=== PATIENT | male | born 1955 | race Caucasian/White ===

== ENCOUNTER → 2017-05-18 | Outpatient (CLI) | payer BC ==
[2017-05-18 09:40] LABS: BASO % 0.3 %; BASO ABS # 0.02 K/uL (0-0.2); EOS % 3.2 %; EOS ABS # 0.22 K/uL (0-0.5); HEMATOCRIT 48.7 % (42-52); IG# 0.01 K/uL (0.00-0.02); LYMPH % 28.6 %; LYMPH ABS # 1.98 K/uL (1.2-3.4); MEAN CELL VOLUME 90.4 fL (80-100); MEAN CORPUSCULAR HEMOGLOBIN 31.5 pg (25-34); MEAN CORPUSCULAR HGB CONC 34.9 g/dl (32-36); MONO % 10.4 %; MONO ABS # 0.72 K/uL (0.11-0.59); NEUT % 57.4 %; NEUT ABS # 3.97 K/uL (1.4-6.5); PLATELET COUNT 160 K/uL (130-400); RED CELL DISTRIBUTION WIDTH CV 13.2 % (11.5-14.5); WHITE BLOOD COUNT 6.92 K/uL (4.8-10.8)
[2017-05-18 09:59] LABS: ALBUMIN 3.5 gm/dl (3.4-5.0); ALT/SGPT 31 U/L (12-78); AST/SGOT 30 U/L (15-37); BLOOD UREA NITROGEN 18 mg/dl (7-18); CALCIUM 8.6 mg/dl (8.5-10.1); CARBON DIOXIDE 27 mmol/L (21-32); CREATININE 0.94 mg/dl (0.60-1.40); GLUCOSE 86 mg/dl (70-99); POTASSIUM 3.9 mmol/L (3.5-5.1); SODIUM 141 mmol/L (136-145); TOTAL PROTEIN 6.8 gm/dl (6.4-8.2)
[2017-05-18 10:10] LABS: ALKALINE PHOSPHATASE 62 U/L (45-117); CHOLESTEROL 222 mg/dl (0-200); LDL CHOLESTEROL CALCULATED 153 mg/dl
== END | disposition home or self-care (01) ==
LOC: C.LAB1850 07:52
PROVIDERS: ATTEND Internal Medicine
DX: E78.5 Hyperlipidemia, unspecified (principal); K62.5 Hemorrhage of anus and rectum; Z12.5 Encounter for screening for malignant neoplasm of prostate

== ENCOUNTER 2020-09-08 08:15 | Inpatient (IN) ==
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
[~2020-09-08 08:15] MED LIST: HEPARIN (PORCINE) 1000 UNIT/ML 10 ML (CATH LAB USE ONLY) ONE; MIDAZOLAM HCL 1 MG/ML 2ML VIAL ONE; NITROGLYCERIN/D5W 100MCG/ML 20ML SYR ONE; fentaNYL citrate 100 MCG/2 ML VIAL ONE; niCARdipine HCL INJ 2.5 MG/ML 10 ML AMP ONE
[2020-09-08] MEDS ORDERED: fentaNYL citrate 100 MCG/2 ML VIAL ONE (08:25)
[2020-09-08] MEDS ORDERED: STAT IV Infusion **Titration per Protocol STA ×2 (08:26→10:02)
[2020-09-08] MEDS ORDERED: MIDAZOLAM BOLUS FROM BAG IV PRN (08:26)
[2020-09-08] MEDS ORDERED: BIVALIRUDIN 250 MG VIAL (CATH LAB ONLY) ONE ×2 (08:29→08:54)
[2020-09-08] MEDS ORDERED: MIDAZOLAM HCL 125 MG/250 ML BAG IV SCH (08:30)
[2020-09-08 08:34] LABS: Basophils # (auto) 0.01 K/uL (0-0.2); Basophils % (auto) 0.2 %; Eosinophils # (auto) 0.21 K/uL (0-0.5); Eosinophils % (auto) 3.2 %; Hematocrit (blood only) 45.6 % (42-52); Hemoglobin 16.1 g/dL (14.0-18.0); Immature Granulocytes # (auto) 0.05 K/uL (0.00-0.02); Immature Granulocytes % (auto) 0.8 %; Lymphocytes # (auto) 2.04 K/uL (1.2-3.4); Lymphocytes % (auto) 31.4 %; Mean Corpuscular Hemoglobin 32.1 pg (25-34); Mean Corpuscular Hgb Conc 35.3 g/dL (32-36); Mean Corpuscular Volume 90.8 fL (80-100); Mean Platelet Volume 10.3 fL (7.4-10.4); Monocytes # (auto) 0.54 K/uL (0.11-0.59); Monocytes % (auto) 8.3 %; Neutrophils # (auto) 3.64 K/uL (1.4-6.5); Neutrophils % (auto) 56.1 %; Platelet Count 185 K/uL (130-400); Red Blood Count 5.02 M/uL (4.7-6.1); White Blood Count 6.49 K/uL (4.8-10.8)
[2020-09-08 08:46] LABS: INR 1.1 (0.9-1.1); Partial Thromboplastin Ratio 0.9; Partial Thromboplastin Time 22.7 Seconds (21.0-31.0); Prothrombin Time 10.9 Seconds (9.0-12.0)
--- NOTE | 2020-09-08 08:49 | XRay Report ---
XR chest 1V portable CLINICAL HISTORY: Chest pain RESPIRATORY FAILURE COMPARISON STUDY: No previous studies for comparison. FINDINGS: There is an endotracheal tube 36 mm above the gris. The heart is normal in size. There is no pneumothorax. There is no failure. There is no focal pulmonary consolidation.[ IMPRESSION: Endotracheal tube 26 mm above the gris. No evidence of failure. No evidence of focal pu lmonary consolidation. ACT 112: Negative or not required by law. Electronically signed by: Mian White M.D. 09/08/2020 8:48 AM
[2020-09-08 08:50] LABS: BUN Creatinine Ratio 16.4 (10-20); Blood Urea Nitrogen 18 mg/dl (7-18); Calcium 8.3 mg/dl (8.5-10.1); Carbon Dioxide 17 mmol/L (21-32); Chloride 114 mmol/L (98-107); Est GFR (African American) 82.4 ml/min; Est GFR (Non-African American) 71.1 ml/min; Glucose 198 mg/dl (70-99); Potassium 3.8 mmol/L (3.5-5.1); Sodium 143 mmol/L (136-145)
[2020-09-08 08:55] LABS: Alanine Aminotransferase 117 U/L (12-78); Alkaline Phosphatase 70 U/L (45-117); Aspartate Aminotransferase 111 U/L (15-37); Bilirubin,Total 0.5 mg/dl (0.2-1); Globulin 3.1 gm/dl (2.5-4.0); Total Protein 6.1 gm/dl (6.4-8.2); Troponin I 0.027 ng/ml (0-0.045)
[2020-09-08 09:01] LABS: Creatine Kinase MB 3.8 ng/ml (0.5-3.6); Magnesium 1.9 mg/dl (1.8-2.4); Thyroid Stimulating Hormone 3.85 uIu/ml (0.300-4.500)
[2020-09-08] MEDS ORDERED: ASPIRIN 81 MG CHEW ONE (09:12)
[2020-09-08] MEDS ORDERED: TICAGRELOR 90 MG TAB PO ONE (09:12)
--- NOTE | 2020-09-08 09:20 | Procedure Note ---
Procedure Note Date of Service September 08, 2020 Procedure date: Noted above Procedure: Central venous access Pre-procedure indication: Need for vasoactive medication administration, therapeutic hypothermia Post-procedure Diagnosis: same as above Prior to Procedure: Informed Consent: Emergent consent implied. Attending Staff: Lillian Brown DO Resident/APC: Not applicable Skin Prep: Chlorhexidine Anesthesia: 4 mL 1% lidocaine without epinephrine The identity of the patient was confirmed and a bedside time out was performed. Description of Procedure: After sterile prep and sterile drape utilizing standard sterile technique the superficial skin of the left femoral area was anesthetized. The target vessel was identified and entered with an 18-gauge needle. Dark venous blood return was noted. A guidewire was inserted through the needle and into the vessel. The needle was withdrawn and a skin nolan was made. A tissue dilator was advanced via Seldinger technique and removed. A triple lumen catheter was inserted via Seldinger technique and the guidewire removed. All ports michaela and flushed easily. A Biopatch was placed, and the catheter was secured via silk suture. A sterile dressing was then applied. This was done under dynamic ultrasound guidance Complications: None Estimated blood loss: Trace Patient tolerated the procedure well. Coding CPT Codes Tubes, Drains, and Vasc Access - Tubes, Drains, and Vasc Access: [id number] Insertion Of Non-tunneled Catheter Age 6 Yrs> ([id number]) [facility] [place] Procedure Codes (Charges) Tubes, Drains, and Vasc Access Procedure 1: Tubes, Drains, and Vasc Access: [id number] Insertion Of Non-tunneled Catheter Age 6 Yrs>
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
[2020-09-08] MEDS ORDERED: MIDAZOLAM HCL 1 MG/ML 2ML VIAL ONE (09:29)
--- NOTE | 2020-09-08 09:36 | Pre Anesthesia Assessment ---
Date of Service September 08, 2020 Pre Sedation Assessment Vital Signs Pulse Resp BP Pulse Ox 09/08/20 08:38 68 103/64 09/08/20 08:37 66 102/66 09/08/20 08:36 68 101/61 09/08/20 08:34 67 103/66 09/08/20 08:32 67 101/73 09/08/20 08:30 75 16 111/68 98 09/08/20 08:28 66 114/75 09/08/20 08:26 69 130/78 09/08/20 08:24 75 135/100 98 09/08/20 08:22 64 148/79 H 98 09/08/20 08:21 71 121/79 98 09/08/20 08:20 67 18 130/78 98 09/08/20 08:18 71 128/76 99 Cardiovascular RRR, no murmur, no edema Respiratory Additional Comments: patient intubated. Pre-Sedation Airway Assessment Smoking Status: Unknown if ever smoked Hx Sleep Apnea: No Hx Difficult Intubation: No Short, Thick Neck: No ASA: ASA4 Procedure Planning Current Medications Reviewed: Yes Notes The planned sedation has been discussed with the patient. Informed Consent was obtained. I have identified the patient, determined the appropriateness of sedation and have assessed the patient immediately prior to the procedure. All medicine(s) and interventions are by my order.
--- NOTE | 2020-09-08 09:38 | Post Anesthesia Assessment ---
Date of Service September 08, 2020 Post Sedation Assessment Vital Signs Pulse Resp BP Pulse Ox 09/08/20 08:38 68 103/64 09/08/20 08:37 66 102/66 09/08/20 08:36 68 101/61 09/08/20 08:34 67 103/66 09/08/20 08:32 67 101/73 09/08/20 08:30 75 16 111/68 98 09/08/20 08:28 66 114/75 09/08/20 08:26 69 130/78 09/08/20 08:24 75 135/100 98 09/08/20 08:22 64 148/79 H 98 09/08/20 08:21 71 121/79 98 09/08/20 08:20 67 18 130/78 98 09/08/20 08:18 71 128/76 99 Recovery Score Oxygen Saturation: O2 needed for >90% Discharge Sedation Level of Care: Higher Level of Care Post Sedation Plan On clinical assessment, the patient appears to have tolerated the sedation without complications. Patient is recovering as anticipated. Patient will continue to be monitored by nursing and may be discharged when sedation discharge criteria are met per below protocol. Upon Completions of procedure up to 15 minutes continue every 5 minute vital signs and the P.A.R. score; then discharge to a Phase I or Fast Track to Phase II per the following guidelines: * Discharge Patient to appropriate Phase II area if PAR is 8 or greater or return to pre- procedure baseline. The post - procedure orders will be as directed. * If PAR score is less than 8 or not return to pre-procedure baseline then patient will follow Phase I monitoring till PAR is reached for Phase II. The Phase I may be done in procedure room or may call to secure a Phase I area. * If naloxone or flumazenil are used for reversal, hold in Phase I for continued monitoring from when last reversal dose was given for a minimum of 60 minutes or longer pending the nurse and/or physician discretion of patient condition before discharge to Phase II. Please call the Sedation Physician to re-evaluate and complete post-note for discharge to Phase II area. Do NOT discharge from procedure sedation or Phase 1 until post- sedation evaluation note is complete by procedure /sedation MD Sedation Discharge Instructions to be given to the patient at discharge to home.
--- NOTE | 2020-09-08 09:44 | Post Operative Brief Note ---
Cardiology Brief Post Op Date of Surgery September 08, 2020 Pre & Post Diagnosis 64-year-old gentleman, prior history of hyperlipidemia who presented to emergency room by EMS after he sustained sudden cardiac arrest while he was walking with his . He was running prior to his walk, they finished a 3 mile run and were walking when patient suddenly started feeling unwell, sat down on the ground and then he collapsed. called 911, did do CPR in the field and subsequently patient was intubated in the field and transferred over to emergency room. Initial prehospital EKG showed evidence of hyperacute T waves, EKG in the emergency room showed evidence of subtle ST elevations in inferior leads no other acute abnormalities. Emergency cardiac catheterization revealed severe proximal LAD lesion with evidence of ruptured plaque. PCI was performed with placement of 3.5 mm x 23 mm Xience drug-eluting stent, postdilated with 3.5 mm NC balloon at nominal pressures. He remained hemodynamically stable during the procedure, no significant arrhythmias were noted either. His left main artery, left circumflex artery and right coronary artery had minimal angiographic atherosclerosis. He will be transferred to intensive care unit for hypothermia protocol, also start aspirin and Brilinta along with high intensity statins. These findings were discussed with patient's in the holding area. Procedure PCI proximal LAD Case Repairer Terry Brumfield MD Board Runner none Estimated Blood Loss 5 Findings Consistent with Post-Op Diagnosis Supervising Physician Co-Signing Physician Notes I have personally spent 55 minutes of critical care time in the direct management of this patient. This is a life/limb threatening event. This includes time spent evaluating patient, direct bedside care, chart review, placing orders, interpretation of diagnostic studies, discussion with consultants, patient, and/or family members regarding treatment decisions, as well as other required patient management activities. This time is exclusive of all separately billable procedures, and teaching time and separate from and in addition to any other critical care service time.
--- NOTE | 2020-09-08 09:47 | Cardiac Catheterization ---
[facility] Data: Glass Installer Technician Cardiac Status 64-year-old gentleman, prior history of hyperlipidemia who presented to emergency room by EMS after he sustained sudden cardiac arrest while he was walking with his . He was running prior to his walk, they finished a 3 mile run and were walking when patient suddenly started feeling unwell, sat down on the ground and then he collapsed. called 911, did do CPR in the field and subsequently patient was intubated in the field and transferred over to emergency room. Initial prehospital EKG showed evidence of hyperacute T waves, EKG in the emergency room showed evidence of subtle ST elevations in inferior leads no other acute abnormalities. Emergency cardiac catheterization revealed severe proximal LAD lesion with evidence of ruptured plaque. PCI was performed with placement of 3.5 mm x 23 mm Xience drug-eluting stent, postdilated with 3.5 mm NC balloon at nominal pressures. He remained hemodynamically stable during the procedure, no significant arrhythmias were noted either. He will be transferred to intensive care unit for hypothermia protocol, also start aspirin and Brilinta along with high intensity statins. These findings were discussed with patient's in the holding area. CAD Presenation: STEMI Cardiogenic Shock within 24 Hours: No Cardiac Arrest within 24 Hours: Yes Diagnostic Physicians Name: Terry Brumfield MD Closure Device Recommendations: PCI without planned CABG Cardiac Cath Procedure Full Procedure Date September 08, 2020 Pre-Procedure Diagnosis Pre-Procedure Diagnosis: STEMI AUC Score AUC Score: 9 Post-Procedure Diagnosis Post-Procedure Diagnosis: Severe CAD Procedure(s) Performed Procedure(s) Performed: Coronary Angiography and Drug Eluting Stent Outreach Counselor Terry Brumfield MD Estimated Blood Loss Estimated Blood Loss: None Summary of Findings 64-year-old gentleman, prior history of hyperlipidemia who presented to emergency room by EMS after he sustained sudden cardiac arrest while he was walking with his . He was running prior to his walk, they finished a 3 mile run and were walking when patient suddenly started feeling unwell, sat down on the ground and then he collapsed. called 911, did do CPR in the field and subsequently patient was intubated in the field and transferred over to emergency room. Initial prehospital EKG showed evidence of hyperacute T waves, EKG in the emergency room showed evidence of subtle ST elevations in inferior leads no other acute abnormalities. Emergency cardiac catheterization revealed severe proximal LAD lesion with evidence of ruptured plaque. PCI was performed with placement of 3.5 mm x 23 mm Xience drug-eluting stent, postdilated with 3.5 mm NC balloon at nominal pressures. He remained hemodynamically stable during the procedure, no significant arrhythmias were noted either. He will be transferred to intensive care unit for hypothermia protocol, also start aspirin and Brilinta along with high intensity statins. These findings were discussed with patient's in the holding area. Hemodynamics Rest Ao:: 98/54 Final Ao: 113/58 LV: not done Recommendations Recommendations: PCI without planned CABG Radiation Exposure (mGy) 694 Contrast (mls) 100 I attest to the content of the Intraoperative Record and any orders documented therein. Any exceptions are noted below. PG Care Time/CCT Total # of Minutes Spent Total Time Spent with Patient: Total time spent is greater than 50% in coordination of care (as documented) at patient's floor/unit and/or counseling patient:
[2020-09-08] MEDS ORDERED: ASPIRIN 81 MG ECTAB PO SCH (10:00)
[2020-09-08] MEDS ORDERED: ATORVASTATIN 40 MG TAB PO SCH (10:00)
[2020-09-08] MEDS ORDERED: METOPROLOL TARTRATE 25 MG TAB PO SCH (10:00)
--- NOTE | 2020-09-08 10:01 | CT Scan Report ---
CT head/brain wo con CLINICAL HISTORY: Cardiac arrest. COMPARISON STUDY: No previous studies for comparison. TECHNIQUE: Axial CT of the brain is performed from the vertex to the skull base. IV contrast was not administered for this examination. A dose lowering technique was utilized adhering to the principles of ALARA. CT DOSE: 601.98 mGy.cm FINDINGS: No intra or extra-axial mass lesions are visualized. There is no CT evidence of acute cortical infarc tion. There is no evidence of midline shift. There is no acute hemorrhage. No calvarial fractures ar e visualized. There is no evidence of pathologic ventricular dilatation. There is no evidence of acute sinusitis Contrast is visualized secondary to a recent cardiac catheterization. IMPRESSION: No acute intracranial findings ACT 112: Negative or not required by law. Electronically signed by: Mian White M.D. 09/08/2020 9:59 AM
[2020-09-08] MEDS ORDERED: NORMOSOL-R 1,000 ML IV SCH (10:02)
[2020-09-08] MEDS ORDERED: MEPERIDINE HCL 25 MG/ML CARP/VIAL IV PRN (10:02)
[2020-09-08] MEDS ORDERED: ICU PROTOCOL FOR HYPERGLYCEMIA PRN (10:02)
[2020-09-08] MEDS ORDERED: DEXMEDETOMIDINE HCL 200 MCG in SODIUM CHLORIDE 0.9% 48 ML IV SCH (10:02)
[2020-09-08] MEDS ORDERED: fentaNYL DRIP 1,250 MCG/250 ML BAG IV SCH (10:02)
[2020-09-08] MEDS ORDERED: AMIODARONE 360MG / 200ML D5W IV ONE (10:25)
[2020-09-08] MEDS ORDERED: AMIODARONE 150MG / 100ML D5W IV ONE ×2 (10:30→10:41)
[2020-09-08] MEDS ORDERED: VECURONIUM BROMIDE 10 MG VIAL IV ONE (10:36)
[2020-09-08] MEDS ORDERED: levETIRAcetam 1,500 MG in 0.9 % SODIUM CHLORIDE 100 ML IV STA (11:00)
[2020-09-08] MEDS ORDERED: AMIODARONE / D5W 360 MG/200 ML BAG IV SCH ×2 (11:00→17:00)
--- NOTE | 2020-09-08 11:00 | Communication Note ---
Date of Service: September 08, 2020 After arrival from cardiac Ophthalmic Asst patient experienced several tonic-clonic activities and posturing ultimately he was given boluses of Versed and is on a Versed infusion at this time. To facilitate work-up and placement of a arterial line he was given 10 mg of vecuronium. We will attempt to place a bis monitor to evaluate further for possible status epilepticus Additionally the patient suffered two episodes of ventricular fibrillation he was cardioverted twice with 200 J each time return to normal sinus rhythm. He was loaded with 150 mg amiodarone IV push then 300 mg load over 10 minutes and is currently on an amiodarone infusion. We have contacted the who expressed desire transfer to [facility] for continuous neuro monito ring. I will load the patient with Keppra at this time I have personally spent 45 minutes of critical care time in the direct management of this patient. This is a life/limb threatening event. This includes time spent evaluating patient, direct bedside care, chart review, placing orders, interpretation of diagnostic studies, discussion with consultants, patient, and/or family members regarding treatment decisions, as well as other required patient management activities. This time is exclusive of all separately billable procedures, and teaching time and separate from and in addition to any other critical care service time. Coding Level of Care Code Critical Care nixon mcguiret'va 30 min
--- NOTE | 2020-09-08 11:01 | Procedure Note ---
Procedure Note Date of Service September 08, 2020 Procedure date: Noted above Procedure: Radial artery cannulation Pre-procedure Diagnosis: Need for invasive monitoring, hypotension/frequent blood draws Post-procedure Diagnosis: same as above Prior to Procedure: Informed Consent: Emergent consent implied Attending Staff: Lillian Brown DO Skin Prep: Chlorhexidine Anesthesia: 3 mL 1% lidocaine without epinephrine The identity of the patient was confirmed and a bedside time out was performed. Description of Procedure: After sterile prep and sterile drape utilizing standard sterile technique the superficial skin of the right radial artery was anesthetized. The target artery was identified via dynamic ultrasound guidance and entered with a 20-gauge arrow Angiocath. Pulsatile bright red blood return was noted. Via modified Seldinger technique the self-contained guidewire was advanced and the Angiocath advanced over the guidewire. The guidewire was removed and brisk arterial blood return was noted. The pressure monitor was connected, and the arterial line was secured via commercial securement device. A sterile dressing was then applied. Complications: None Estimated blood loss: Trace Patient tolerated the procedure well. Coding CPT Codes Tubes, Drains, and Vasc Access - Tubes, Drains, and Vasc Access: [id number] Place Catheter In Artery ([id number]) [facility] Procedure Codes (Charges) Tubes, Drains, and Vasc Access Procedure 1: Tubes, Drains, and Vasc Access: [id number] Place Catheter In Artery
--- NOTE | 2020-09-08 11:03 | Procedure Note ---
Procedure Note Date of Service September 08, 2020 Procedure date: Noted above Procedure: Cardiopulmonary resuscitation Pre-procedure Diagnosis: CODE BLUE, cardiac arrest: Ventricular fibrillation Post-procedure Diagnosis: same as above Prior to Procedure: Informed Consent: Emergent Attending Staff: Lillian Brown DO Please refer to nursing code flowsheet for further details Description of Procedure: ACS protocols were followed for a ventricular fibrillation. Patient was started on CPR and cardioverted x1 with 200 J which produced a normal sinus rhythm and CPR was continued. Patient had return of a spontaneous perfusing rhythm and eventually he entered ventricular fibrillation again, he was started on CPR defibrillated at 200 J and again produced a normal sinus rhythm CPR was continued and then 1 no spontaneous perfusing rhythm was achieved CPR was discontinued please refer to code sheet for further details ultimately he was loaded with 450 mg of amiodarone Complications: None apparent at this time Coding CPT Codes Resuscitation - Resuscitation: 53835 Heart/lung resuscitation CPR ([id number]) [facility] Procedure Codes (Charges) Resuscitation Resuscitation: [id number] Heart/lung resuscitation CPR
[2020-09-08 11:15] LABS: iSTAT Arterial Blood Gas HCO3 26 meg/L (19-24); iSTAT Arterial Blood Gas pCO2 54 mmHg (35-46); iSTAT Arterial Blood Gas pH 7.28 (7.35-7.45); iSTAT Arterial Blood Gas pO2 361 mmHg (80-95); iSTAT Carbon Dioxide 27 mmol/L (24-31); iSTAT FiO2 0 %; iSTAT Site Art Line
[2020-09-08] MEDS: AMIODARONE 150MG / 100ML D5W IV SCH ×2 (11:20→11:23)
[2020-09-08 11:24] LABS: Basophils # (auto) 0.01 K/uL (0-0.2); Basophils % (auto) 0.1 %; Eosinophils # (auto) 0.03 K/uL (0-0.5); Eosinophils % (auto) 0.2 %; Hematocrit (blood only) 45.2 % (42-52); Hemoglobin 15.8 g/dL (14.0-18.0); Immature Granulocytes # (auto) 0.07 K/uL (0.00-0.02); Immature Granulocytes % (auto) 0.4 %; Lymphocytes # (auto) 1.24 K/uL (1.2-3.4); Lymphocytes % (auto) 7.9 %; Mean Corpuscular Hemoglobin 32.2 pg (25-34); Mean Corpuscular Volume 92.2 fL (80-100); Mean Platelet Volume 10.6 fL (7.4-10.4); Neutrophils # (auto) 13.28 K/uL (1.4-6.5); Neutrophils % (auto) 84.4 %; Platelet Count 207 K/uL (130-400); RDW Coefficient of Variation 12.9 % (11.5-14.5); RDW Standard Deviation 43.9 fL (36.4-46.3); White Blood Count 15.73 K/uL (4.8-10.8)
[2020-09-08] MEDS ORDERED: ARTIFICIAL TEARS OP OINT 3.5 GM TUBE OP ONE (11:38)
[2020-09-08 11:45] LABS: INR 3.4 (0.9-1.1); Partial Thromboplastin Ratio 2.9; Prothrombin Time 31.5 Seconds (9.0-12.0)
[2020-09-08 11:47] LABS: Partial Thromboplastin Time 75.9 Seconds (21.0-31.0)
[2020-09-08 11:49] LABS: BUN Creatinine Ratio 18.3 (10-20); Calcium 7.3 mg/dl (8.5-10.1); Creatinine Clr Calc Pharmacy 91.2 ml/min; Est GFR (African American) 103.6 ml/min; Est GFR (Non-African American) 89.4 ml/min; Magnesium 1.8 mg/dl (1.8-2.4); Phosphorus 2.3 mg/dl (2.5-4.9); Potassium 3.1 mmol/L (3.5-5.1)
[2020-09-08 11:53] LABS: Appearance Urine Clear (Clear); Bacteria Urine Automated Negative (Negative); Bilirubin Urine Negative (Negative); Blood Urine 1+ (Negative); Color Urine Yellow; Glucose Urine UA 2+ (Negative); Ketones Urine Trace (Negative); Leukocyte Esterase Urine Negative (Negative); Nitrite Urine Negative (Negative); Protein Urine 3+ (Negative); Specific Gravity Urine 1.038 (1.000-1.030); Urobilinogen Urine Negative (Negative)
[2020-09-08 12:04] LABS: Epithelial Cell Urine Auto 0-5 /lpf (0-5)
[2020-09-08] MEDS: PATIENT'S HEIGHT AND/OR WEIGHT NEEDED SCH ×2 (12:09→13:01)
[2020-09-08] MEDS ORDERED: OPTIRAY 350 500ml IV ONE (12:13)
--- NOTE | 2020-09-08 12:48 | CT Scan Report ---
CT angio head w con CLINICAL HISTORY: seizure TECHNIQUE: CT angiography of the head was performed in a dynamic helical fashion during intravenous a dministration of 120 cc of Optiray. MIP imaging was performed. A dose lowering technique was utilized adhering to the principles of ALARA. CT DOSE: 159.81 mGy.cm COMPARISON STUDY: No previous studies for comparison. FINDINGS: There are no lesion suspicious for aneurysm. There are no major intracranial branch occlusi ons. There are mild intracranial atherosclerotic disease with nonhemodynamically significant bilatera l supraclinoid internal carotid artery stenoses. Incidental note is made of an endotracheal tube and orogastric tube. IMPRESSION: 1. No evidence of aneurysm 2. Mild intracranial atherosclerotic disease with nonhemodynamically significant bilateral supraclino id internal carotid artery stenosis ACT 112: Negative or not required by law. Electronically signed by: Mian White M.D. 09/08/2020 12:47 PM
--- NOTE | 2020-09-08 15:07 | Electrocardiogram Report ---
Test Reason : Blood Pressure : / mmHG Vent. Rate : 071 BPM Atrial Rate : 071 BPM P-R Int : 192 ms QRS Dur : 086 ms QT Int : 422 ms P-R-T Axes : 062 080 082 degrees QTc Int : 458 ms Normal sinus rhythm Septal infarct , age undetermined Nonspecific ST and T wave abnormality Abnormal ECG No previous ECGs available Confirmed by Javed Borges ([id number]) on 09/08/2020 3:06:57 PM Referred By: REFERRED SELF Confirmed By:Javed Borges
--- NOTE | 2020-09-08 15:08 | Electrocardiogram Report ---
Test Reason : Blood Pressure : / mmHG Vent. Rate : 072 BPM Atrial Rate : 036 BPM P-R Int : 000 ms QRS Dur : 102 ms QT Int : 452 ms P-R-T Axes : 000 079 066 degrees QTc Int : 494 ms Atrial fibrillation Anteroseptal infarct (cited on or before 08-SEP-2020) Abnormal ECG When compared with ECG of 08-SEP-2020 08:21, (unconfirmed) Atrial fibrillation has replaced Sinus rhythm ST no longer elevated in Inferior leads Confirmed by Javed Borges ([id number]) on 09/08/2020 3:08:30 PM Referred By: REFERRED SELF Confirmed By:Javed Borges
[2020-09-08] MEDS ORDERED: SODIUM CHLORIDE 0.9% 10ML FLUSH IV ONE (16:29)
[2020-09-08] MEDS ORDERED: SODIUM BICARB 8.4% INJ 50 MEQ/50 ML SYR IV ONE (16:29)
[2020-09-08] MEDS ORDERED: AMIODARONE HCL INJ 50 MG/ML 3 ML VIAL IV ONE (16:29)
[2020-09-08] MEDS ORDERED: FAMOTIDINE 20 MG in SYRINGE 3 ML IV SCH (21:00)
[2020-09-08] MEDS ORDERED: TICAGRELOR 90 MG TAB PO SCH (21:00)
--- NOTE | 2020-09-18 15:43 | Discharge Summary ---
Date of Service September 18, 2020 Admission HPI Per Admitting Provider Patient is a 64-year-old male without significant past medical history who presents after cardiac arrest. He went emergently to the cardiac [facility] for percutaneous coronary intervention. Admission Exam (Per Admitting) Constitutional General: Glascow Coma Scale: Eyes: One, Verbal 1T, Motor one, Total 3T. nontoxic. Skin: Warm, dry, Head: Atraumatic Ears, nose, mouth and throat: airway obscured by endotracheal tube Cardiovascular: Normal peripheral perfusion Respiratory: no respiratory distress Gastrointestinal: Non distended Musculoskeletal: No deformity Discharge Data Consultations 09/08/20 09:47 Consult Internal Medicine Routine 09/08/20 11:35 Burn CD for patient Stat Procedures Performed Operation Date: 09/08/20 08:15 Actual Procedures s Cath, Coronaries ONLY (no LV) - Terry Brumfield MD s Cineradiography w/Routine Exam - Terry Brumfield MD p Aspiration/PCI w/NASH for Stemi - Terry Brumfield MD s Placement Art Occlusive Device - Terry Brumfield MD Hospital Course (1) Cardiac arrest: After return from cardiac [facility] patient was noted to be experiencing seizure-like activity and was emergently transferred to [facility] (2) Acute encephalopathy: Coding Level of Care Code None Diagnoses Cardiac arrest I46.9 Acute encephalopathy G93.40
--- NOTE | 2020-09-19 06:11 | Coding Query ---
CODING QUERY To promote full compliance with coding requirements relating to patient care, provider participation is requested in all cases of customer supply coordinator uncertainty. Please assist us with the question(s) below: Coding Question(s): Patient admitted s/p cardiac arrest in the field. PTCA intervention done. Please document, if known or suspected, the etiology of the cardiac arrest . Thank you. 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 lesion Principal Diagnosis: "that condition established after study, to be chiefly responsible for occasioning the admission of the patient to the hospital for care." Co-Existing Principal Diagnosis: "when two or more diagnoses equally meet the criteria for principal diagnosis as determined by the circumstances of admission, diagnostic work up, and/or therapy provided, and the Alphabetic Index, Tabular List, or another coding guideline does not provide sequencing direction, any one of the diagnoses may be sequenced first." "When the physician has documented what appears to be a current diagnosis in the body of the record, but has not included the diagnosis in the final diagnostic statement, the physician should be asked whether the diagnosis should be added." (Source [facility] 2 QTR90. p3-4) MARIYA
== END 2020-09-08 16:30 | disposition short-term general hospital (02) | DRG 246 ==
LOC: ED 08:15 → CC 08:50 → 1E 10:02
PROC: CLB.CCO (2020-09-08 08:15)